=== PATIENT | male | born 1965 | race Caucasian/White ===

== ENCOUNTER 2021-10-02 15:14 | Emergency (ER) | payer OTHER ==
[~2021-10-02] VITALS: Ht 177.8 cm; Wt 108.9 kg
[~2021-10-02 15:14] MED LIST changes: -Aldactone50 MG PO
[2021-10-02] MEDS ORDERED: Aldactone50 MG PO (16:57)
== END 2021-10-02 17:20 | disposition home or self-care (01) ==
LOC: ER 15:14
DX: E87.70 Fluid overload, unspecified (principal); I11.9 Hypertensive heart disease without heart failure; I48.92 Unspecified atrial flutter; Z79.4 Long term (current) use of insulin; Z79.899 Other long term (current) drug therapy; Z79.82 Long term (current) use of aspirin
CPT/HCPCS: 36415; 93005; 93010; 96374; 99285-25; J1940

== ENCOUNTER → 2021-10-02 | Outpatient (CLI) | payer OTHER ==
[~2021-10-02] MED LIST: ACET500 PO; ADMELOG SO100 UNIT/2 SC; ALLO300 PO; ATOR40TA PO; Aldactone50 MG PO; Aspir 8181 MG PO; BACTRIM DS TAB1 EAC6 PO; BASAGLAR K100 UNIT/8 SC; CARVEDILOL12.5 MG PO; CYCL10 PO; DILTIAZEM 24HR300 M2 PO; ELIQUIS5 MG PO; IBUP800 PO; LISI5 PO; METF500 PO; Norco 5-325 Ta1 EACH PO; VICODIN HP 10-1 EACH PO; ZESTRIL40 MG PO; Zofran Odt4 MG SL
[2021-10-02 14:00] LABS: BASOPHILS ABSOLUTE AUTO 0.03 K/mm3 (0.00-0.23); BASOPHILS PERCENT AUTO 1 % (0-2); EOSINOPHILS ABSOLUTE AUTO 0.16 K/mm3 (0.00-0.68); EOSINOPHILS PERCENT AUTO 3 % (0-6); Hematocrit 44.6 % (37.0-53.0); Hemoglobin 15.2 g/dL (13.5-17.5); IMMATURE GRAN ABSOLUTE AUTO 0.03 K/mm3 (0.00-0.10); IMMATURE GRAN PERCENT AUTO 1 % (0-1); LYMPHOCYTES ABSOLUTE AUTO 1.01 K/mm3 (0.84-5.20); LYMPHOCYTES PERCENT AUTO 19 % (21-46); MONOCYTES ABSOLUTE AUTO 0.65 K/mm3 (0.16-1.47); MONOCYTES PERCENT AUTO 12 % (4-13); Mean Corpuscular HGB 31.3 pg (26.0-34.0); Mean Corpuscular HGB Conc 34.1 g/dL (31.5-36.5); Mean Corpuscular Volume 92 fL (80-100); Mean Platelet Volume 10.8 fL (9.1-12.4); NEUTROPHILS ABSOLUTE AUTO 3.36 K/mm3 (1.96-9.15); NEUTROPHILS PERCENT AUTO 64 % (41-73); Platelet Count 147 K/mm3 (150-400); RDW Coefficient Variation 13.2 % (11.7-14.2); RDW Standard Deviation 44.2 fL (35.1-46.3); Red Blood Cell Count 4.86 M/mm3 (4.30-5.90); White Blood Cell Count 5.24 K/mm3 (4.00-11.30)
[2021-10-02 14:04] LABS: Alanine Aminotransfer (ALT/SGP 62 U/L (12-78); Albumin, Blood 3.3 g/dL (3.4-5.0); Albumin/Globulin Ratio 0.7 (0.8-1.8); Alk Phos 161 U/L (40-126); Anion Gap 6 mmol/L (6-16); Aspartate Aminotrans (AST/SGOT 43 U/L (12-37); Bilirubin, Total 0.7 mg/dL (0.1-1.0); Blood Urea Nitrogen 19 mg/dL (8-24); Bun/Creatinine Ratio 22.1 (12.0-20.0); CO2, Blood 28 mmol/L (21-32); Calcium, Blood 8.8 mg/dL (8.5-10.1); Chloride, Blood 109 mmol/L (98-108); Creatinine, Blood 0.86 mg/dL (0.60-1.20); Globulin, Blood 4.7 g/dL (2.2-4.0); Glomerular Filtration Rate >60 (60-); Glucose, Blood 103 mg/dL (70-99); Potassium, Blood 3.9 mmol/L (3.5-5.5); Sodium, Blood 143 mmol/L (136-145)
== END ==
LOC: LAB SHORT 13:42 → LAB 13:42
PROVIDERS: Physician Assistant Medical
DX: R60.9 Edema, unspecified (principal)
CPT/HCPCS: 80053; 83880; 84484; 85025

== ENCOUNTER 2022-03-21 11:54 | Emergency (ER) | payer OTHER ==
[~2022-03-21] VITALS: Ht 175.3 cm; Wt 99.8 kg
[~2022-03-21 11:54] MED LIST changes: +Aldactone50 MG PO
== END 2022-03-21 12:31 | disposition home or self-care (01) ==
LOC: ER 11:54
DX: F32.9 Major depressive disorder, single episode, unspecified (principal); I10 Essential (primary) hypertension; E11.9 Type 2 diabetes mellitus without complications; I48.91 Unspecified atrial fibrillation; M10.9 Gout, unspecified; Z79.82 Long term (current) use of aspirin; Z88.5 Allergy status to narcotic agent; Z91.048 Other nonmedicinal substance allergy status; Z79.899 Other long term (current) drug therapy; Z79.01 Long term (current) use of anticoagulants; Z79.4 Long term (current) use of insulin
CPT/HCPCS: 99283